=== PATIENT | female | born 1990 | race Caucasian/White ===

== ENCOUNTER 2022-08-10 11:04 | Day surgery (SDC) | payer BC ==
[2022-08-08 16:07] VITALS: BMI 27.6
[2022-08-10] MEDS ORDERED: Bupivacaine PF 0.5% 30 ML VIAL ONE (13:02)
[2022-08-10] MEDS ORDERED: Fentanyl 100 MCG/2 ML VIAL ONE (13:03)
[2022-08-10] MEDS ORDERED: PROPOFOL 40 ML ONE (13:03)
[2022-08-10] MEDS ORDERED: Lidocaine 1% PF 5 ML VIAL ONE (13:04)
[2022-08-10] MEDS ORDERED: CEFAZOLIN 2 GM VIAL ONE (13:16)
[2022-08-10] MEDS ORDERED: Ondansetron PF 4 MG/2 ML Vial ONE (13:34)
[2022-08-10] MEDS ORDERED: Dexamethasone 4 mg/ml Vial ONE (13:34)
[2022-08-10] MEDS ORDERED: Ropivacaine 0.2% 550 ML 550 ML NERVE BLCK SCH (13:45)
[2022-08-10] MEDS ORDERED: Neomycin-Polymyxin 1 ML AMP ONE (14:04)
[2022-08-10] MEDS ORDERED: Ketorolac Tromethamine 30 MG/ML VIAL ONE (14:33)
== END 2022-08-10 16:50 | disposition home or self-care (01) ==
LOC: CSHSDC 11:04
PROVIDERS: ATTEND Podiatrist Foot & Ankle Surgery
PROC: 0SGK04Z Fusion of Right Tarsometatarsal Joint with Internal Fixation Device, Open Approach (ICD-10-PCS; principal; 2022-08-10)
DX: M20.11 Hallux valgus (acquired), right foot (principal); M25.374 Other instability, right foot
CPT/HCPCS: A4306; C1713; C1769; C1776; J1100; J1885; J2405; J2704; J2795; J3010; S0020

== ENCOUNTER 2022-12-23 12:22 | Outpatient (CLI) | payer BC | END 2022-12-23 12:23 | disposition home or self-care (01) | LOC: CSHMAMMO 12:22 | PROVIDERS: ATTEND Obstetrics & Gynecology | DX: Z12.31 Encounter for screening mammogram for malignant neoplasm of breast (principal); Z80.3 Family history of malignant neoplasm of breast | CPT/HCPCS: 77063; 77067 ==